=== PATIENT | male | born 1960 | race Hispanic/Latino ===

== ENCOUNTER 2023-03-19 14:12 | Emergency (ER) | payer OTHER ==
[2023-03-19] MEDS ORDERED: Lidocaine 1% (PF) 30 ML VIAL ONE (14:30)
[2023-03-19] MEDS ORDERED: Boostrix 0.5 ML (Tdap) VIAL (>/=7 yrs of age) ONE (14:30)
[2023-03-19] MEDS ORDERED: Bacitracin 1 PK ONE (15:37)
== END 2023-03-19 15:36 | disposition home or self-care (01) ==
LOC: NAV ERS 14:12
DX: S61.211A Laceration without foreign body of left index finger without damage to nail, initial encounter (principal); W26.8XXA Contact with other sharp object(s), not elsewhere classified, initial encounter; Z23 Encounter for immunization
CPT/HCPCS: 12001; 90471; 90715; J2001